=== PATIENT | male | born 1935 | race Caucasian/White ===

== ENCOUNTER 2016-08-10 16:33 | Inpatient (IN) | payer MEDICARE, BC ==
[2016-08-10] MEDS ORDERED: Ondansetron 4 MG/2 ML SDV IVPUSH ONE (17:25)
[2016-08-10] MEDS: Sodium Chloride 0.9% 1,000 ML IV SCH ×2 (17:39→23:44)
--- NOTE | 2016-08-10 18:07 | EDM.PDOC ---
[id number] Chief Complaint: Gastrointestinal Problem Stated Complaint: STOMACH PAIN/VOMITING Time Seen by Provider: 08/10/16 17:15 - Related Data Allergies Allergy/AdvReac Type Severity Reaction Status Date / Time No Known Allergies Allergy Verified 08/10/16 16:57 Home Meds: Home Meds Aspirin [Adult Low Dose Aspirin EC] 81 mg PO DAILY 09/26/13 [History] Metoprolol Tartrate [Lopressor] 25 mg PO DAILY 09/26/13 [History] Cyanocobalamin (Vitamin B-12) [Vitamin B12] 5,000 mcg PO DAILY 08/10/16 [History ] Carbidopa/Levodopa [Carbidopa-Levodopa 25-100] 1 tab PO TID 08/11/16 [History] Course - Vital Signs Last Recorded V/S: Last Vital Signs Temp 98.3 F 08/11/16 10:51 Pulse 59 L 08/11/16 10:51 Resp 16 08/11/16 10:51 BP 94/43 L 08/11/16 10:51 Pulse Ox 94 L 08/11/16 10:51 - Orders/Labs/Meds Orders: Active Orders 24 hr Category Date Time Status Abdomen Pelvis w Cont [CT] Stat Exams 08/10/16 18:23 Taken Medication Orders Albuterol (Proventil Neb Soln) 2.5 mg NEB Q4H PRN PRN Reason: Shortness Of Breath/wheezing Carbidopa/Levodopa (Sinemet 25-100 Mg) 1 tab PO TID [facility] Last Admin: 08/11/16 09:53 Dose: 1 tab Sodium Chloride (Normal Saline) 1,000 mls @ 125 mls/hr IV ASDIRECTED [facility] Lorazepam (Ativan) 0.5 mg IVPUSH Q2H PRN PRN Reason: Hiccups Metoprolol Tartrate (Lopressor) 25 mg PO DAILY [facility] Last Admin: 08/11/16 09:53 Dose: 25 mg Morphine Sulfate (Morphine) 2 mg IVPUSH Q2H PRN PRN Reason: Pain (severe 7-10) Ondansetron HCl (Zofran) 4 mg IV Q4H PRN PRN Reason: Nausea/Vomiting Pantoprazole Sodium (Protonix Iv) 40 mg IV Q12H [facility] Last Admin: 08/10/16 23:18 Dose: 40 mg Labs: Laboratory Tests 08/10/16 08/10/16 Range/Units 17:26 17:26 WBC 11.6 H (4.5-11.0) K/uL RBC 5.07 (4.30-5.90) M/uL Hgb 15.3 H (12.0-15.0) g/dL Hct 44.8 (40.0-54.0) % MCV 88 (80-98) fL MCH 30 (27-31) pg MCHC 34 (32-36) % Plt Count 147 L (150-400) K/uL Neut % (Auto) 91 H (36-66) % Lymph % (Auto) 3 L (24-44) % [place] % (Auto) 6 (2-6) % Eos % (Auto) 0 L (2-4) % Baso % (Auto) 0 (0-1) % Sodium 137 L (140-148) mmol/L Potassium 4.6 (3.6-5.2) mmol/L Chloride 102 (100-108) mmol/L Carbon Dioxide 25 (21-32) mmol/L Anion Gap 14.6 H (5.0-14.0) mmol/L BUN 25 H (7-18) mg/dL Creatinine 1.4 H (0.8-1.3) mg/dL Est Cr Clr Drug Dosing 40.71 mL/min Estimated GFR (MDRD) 49 L (>60) Glucose 152 H (74-106) mg/dL Calcium 8.7 (8.5-10.1) mg/dL Total Bilirubin 1.3 H (0.2-1.0) mg/dL AST 14 L (15-37) U/L ALT 15 (12-78) U/L Alkaline Phosphatase 66 (46-116) U/L Total Protein 8.0 (6.4-8.2) g/dL Albumin 3.8 (3.4-5.0) g/dL Globulin 4.2 H (2.3-3.5) g/dL Albumin/Globulin Ratio 0.9 L (1.2-2.2) Amylase 77 (25-115) U/L Lipase 100 (73-393) U/L Meds: Medications Generic Name Dose Route Start Last Admin Trade Name Freq PRN Reason Stop Dose Admin Albuterol 2.5 mg 08/10/16 22:20 Proventil Neb Soln NEB Q4H PRN Shortness Of Breath/wheezing Carbidopa/Levodopa 1 tab 08/11/16 09:00 08/11/16 09:53 Sinemet 25-100 Mg PO 1 tab TID JORDEN Administration Sodium Chloride 1,000 mls @ 125 mls/hr 08/10/16 22:20 Normal Saline IV ASDIRECTED JORDEN Lorazepam 0.5 mg 08/11/16 01:22 Ativan IVPUSH Q2H PRN Hiccups Metoprolol Tartrate 25 mg 08/11/16 09:00 08/11/16 09:53 Lopressor PO 25 mg DAILY JORDEN Administration Morphine Sulfate 2 mg 08/10/16 22:20 Morphine IVPUSH Q2H PRN Pain (severe 7-10) Ondansetron HCl 4 mg 08/10/16 22:20 Zofran IV Q4H PRN Nausea/Vomiting Pantoprazole Sodium 40 mg 08/10/16 22:20 08/10/16 23:18 Protonix Iv IV 40 mg Q12H JORDEN Administration Discontinued Medications Generic Name Dose Route Start Last Admin Trade Name Freq PRN Reason Stop Dose Admin Sodium Chloride 1,000 mls @ 150 mls/hr 08/10/16 17:30 08/11/16 06:54 Normal Saline IV 150 mls/hr ASDIRECTED JORDEN Administration Sodium Chloride 81 mls @ 3 mls/sec 08/10/16 18:29 08/10/16 18:56 Normal Saline IV 08/10/16 18:30 3 mls/sec ONETIME ONE Administration Iopamidol 135 ml 08/10/16 18:30 08/10/16 18:56 Isovue-300 (61%) IV 150 ml . DIRECTED JORDEN Administration Lorazepam 1 mg 08/10/16 22:20 Ativan IV Q6H PRN Nausea/Vomiting Ondansetron HCl 4 mg 08/10/16 17:25 08/10/16 17:40 Zofran IVPUSH 08/10/16 17:26 4 mg ONETIME ONE Administration Sodium Chloride 10 ml 08/10/16 18:29 08/10/16 18:56 Saline Flush FLUSH 10 ml ONETIME PRN Administration PER RADIOLOGY PROTOCOL Departure - Departure Time of Disposition: 20:36 Disposition: Admitted As Inpatient 66 Condition: fair Clinical Impression: Bowel obstruction Qualifiers: Intestinal obstruction type: other intestinal obstruction Qualified Code(s): K56.69 - Other intestinal obstruction - Discharge Information - My Orders Last 24 Hours: My Active Orders 08/10/16 18:23 Abdomen Pelvis w Cont [CT] Stat - Assessment/Plan Last 24 Hours: My Active Orders 08/10/16 18:23 Abdomen Pelvis w Cont [CT] Stat <Cooper Keller D - Last Filed: 08/11/16 11:23> ED HPI GENERAL MEDICAL PROBLEM - General Source of Information: Reports: Patient History Limitations: Reports: No Limitations - History of Present Illness INITIAL COMMENTS - FREE TEXT/NARRATIVE: 80-year-old male with Parkinson's has been vomiting since 3 AM. He was fine when he went to bed. He went into the clinic and they sent him to the emergency room because of persistent vomiting. He feels his abdomen is distended. No fevers or chills, no shortness of breath, no chest pain. He had a large bowel movement yesterday none since last evening. Onset: Sudden (Sometime in the middle of the night around 12 hours ago) Location: Reports: Abdomen Severity: Moderate Associated Symptoms: Reports: Loss of Appetite, Nausea/Vomiting, Weakness. Denies: Fever/Chills, Shortness of Breath Abdominal Pain Score (Numeric/FACES): 2 Past Medical History Cardiovascular History: Reports: Hypertension Gastrointestinal History: Reports: Cholelithiasis Neurological History: Reports: Parkinson's Oncologic (Cancer) History: Reports: Other (See Below) Other Oncologic History: skin cancer Dermatologic History: Reports: Other (See Below) Other Dermatologic History: skin cancer - Past Surgical History HEENT Surgical History: Reports: Tonsillectomy GI Surgical History: Reports: Cholecystectomy, Other (See Below) Other GI Surgeries/Procedures: AAA Dermatological Surgical History: Reports: Skin Biopsy Social & Family History - Tobacco Use Smoking Status *Q: Never Smoker Second Hand Smoke Exposure: No - Caffeine Use Caffeine Use Comment: rebecca - Alcohol Use Days Per Week of Alcohol Use: 0 - Recreational Drug Use Recreational Drug Use: No ED ROS GENERAL - Review of Systems Review Of Systems: See Below Constitutional: Reports: Malaise, Decreased Appetite. Denies: Fever, Chills HEENT: Reports: No Symptoms Respiratory: Denies: Shortness of Breath, Cough Cardiovascular: Denies: Chest Pain GI/Abdominal: Reports: Abdominal Pain, Decreased Appetite, Vomiting. Denies: Flatus : Reports: No Symptoms Skin: Reports: No Symptoms Neurological: Reports: Other (Parkinson symptoms, unchanged) Psychiatric: Reports: No Symptoms ED EXAM, GI/ABD - Physical Exam Exam: See Below Exam Limited By: No Limitations General Appearance: Alert, No Apparent Distress Throat/Mouth: Normal Inspection (Good hydration) Respiratory/Chest: No Respiratory Distress, Lungs Clear Cardiovascular: Irregularly Irregular GI/Abdominal: Soft, Hypoactive Bowel Sounds, Tympanic Bowel Sounds, Tenderness ( Diffusely), Distention Neurological: Alert, Oriented, Slow to Respond (Typical of Parkinson's) Psychiatric: Flat Affect Skin Exam: Warm, Dry Course - Re-Assessments/Exams Free Text/Narrative Re-Assessment/Exam: 08/10/16 18:17 White count was mildly elevated at 11.6, patient is not anemic. Hydration at 500 mL an hour of normal saline was started. Amylase and lipase were normal. GFR was for the 6, creatinine 1.4. A CT the abdomen and pelvis was obtained with IV contrast to assess for possible bowel obstruction. Care was turned over to Dr Marti pending CT scan results.
[2016-08-10] MEDS ORDERED: Sodium Chloride 0.9% 10 ML Syringe FLUSH PRN (18:29)
[2016-08-10] MEDS ORDERED: Iopamidol 612 MG/ML 150 ML Bottle IV SCH (18:30)
[2016-08-10] MEDS ORDERED: LORazepam 2 MG/ML MDV IV PRN (22:20)
[2016-08-10] MEDS ORDERED: Morphine 2 MG/ML Syringe IVPUSH PRN (22:20)
[2016-08-10] MEDS ORDERED: Albuterol 0.083% 2.5 MG/3 ML Neb Soln NEB PRN (22:20)
[2016-08-10] MEDS ORDERED: Ondansetron 4 MG/2 ML SDV IV PRN (22:20)
--- NOTE | 2016-08-10 22:55 | PCM.HP ---
H&P History of Present Illness - General Date of Service: 08/10/16 Admit Problem/Dx: Admission Diagnosis/Problem Admission Diagnosis/Problem Small bowel obstruction Source of Information: Patient, Family ( and son) History Limitations: Reports: No Limitations - History of Present Illness Initial Comments - Free Text/Narative: History Limitations: Reports: No Limitations - History of Present Illness INITIAL COMMENTS - FREE TEXT/NARRATIVE: 80-year-old male with Parkinson's has been vomiting since 3 AM. He was fine when he went to bed. He went into the clinic and they sent him to the emergency room because of persistent vomiting. He feels his abdomen is distended. No fevers or chills, no shortness of breath, no chest pain. He had a large bowel movement yesterday none since last evening. Onset: Sudden (Sometime in the middle of the night around 12 hours ago) Location: Reports: Abdomen Severity: Moderate Associated Symptoms: Reports: Loss of Appetite, Nausea/Vomiting, Weakness. Denies: Fever/Chills, Shortness of Breath Abdominal 08/10/16 18:17 White count was mildly elevated at 11.6, patient is not anemic. Hydration at 500 mL an hour of normal saline was started. Amylase and lipase were normal. GFR was for the 6, creatinine 1.4. A CT the abdomen and pelvis was obtained with IV contrast to assess for possible bowel obstruction. CT scan; new small bowel obstruction. focal small bowel transition point not identified. no pneumatosis, free air or interloop ascities. terminal ileum is decompressed. large bowel is normal caliber with extensive diverticulosis. see full report. Onset of Symptoms: Reports: Today Symptom Onset Date: 08/10/16 Symptom Onset Time: 03:00 Duration of Symptoms: Reports: Hour(s):, Getting Worse Location: Reports: Abdomen Quality: Reports: Ache, Sharp Severity: Moderate Improves with: Reports: None Worsens with: Reports: Eating, Movement Context: Reports: Other (last meal Monday night, ate roast pork supper, sick every since.) Associated Symptoms: Reports: Loss of Appetite, Nausea/Vomiting Abdominal Pain Score (Numeric/FACES): 2 - Related Data Allergies/Adverse Reactions: Allergies Allergy/AdvReac Type Severity Reaction Status Date / Time No Known Allergies Allergy Verified 08/10/16 16:57 Home Medications: Home Meds Aspirin [Adult Low Dose Aspirin EC] 81 mg PO DAILY 09/26/13 [History] Carbidopa/Levodopa [Sinemet Cr 25-100 Tablet] 1 tab PO TID 09/26/13 [History] Metoprolol Tartrate [Lopressor] 25 mg PO DAILY 09/26/13 [History] Cyanocobalamin (Vitamin B-12) [Vitamin B12] 5,000 mcg PO DAILY 08/10/16 [History ] Past Medical History Cardiovascular History: Reports: Hypertension Gastrointestinal History: Reports: Cholelithiasis Other Gastrointestinal History: hernia surgery X1, 2 hernias Neurological History: Reports: Parkinson's Oncologic (Cancer) History: Reports: Other (See Below) Other Oncologic History: skin cancer Dermatologic History: Reports: Other (See Below) Other Dermatologic History: skin cancer - Past Surgical History HEENT Surgical History: Reports: Tonsillectomy GI Surgical History: Reports: Cholecystectomy, Other (See Below) Other GI Surgeries/Procedures: AAA Dermatological Surgical History: Reports: Skin Biopsy Social & Family History - Family History Family Medical History: Noncontributory - Tobacco Use Smoking Status *Q: Never Smoker Second Hand Smoke Exposure: No - Caffeine Use Caffeine Use Comment: rarley - Alcohol Use Days Per Week of Alcohol Use: 0 - Recreational Drug Use Recreational Drug Use: No - Living Situation & Occupation Living situation: Reports: Occupation: Retired (lives with [employer] [address], one son and daughter. Son Template Fitter [place] H&P Review of Systems - Review of Systems: Review Of Systems: See Below General: Reports: Chills, Malaise, Fatigue, Decreased Appetite HEENT: Reports: No Symptoms Pulmonary: Reports: No Symptoms Cardiovascular: Reports: No Symptoms Gastrointestinal: Reports: Abdominal Pain, Distension, Nausea, Vomiting Genitourinary: Reports: No Symptoms Musculoskeletal: Reports: No Symptoms Skin: Reports: No Symptoms Psychiatric: Reports: No Symptoms Neurological: Reports: No Symptoms Hematologic/Lymphatic: Reports: No Symptoms Immunologic: Reports: No Symptoms Exam - Exam Exam: See Below - Vital Signs Vital Signs: Last Vital Signs Temp 37.8 C 08/10/16 21:46 Pulse 92 08/10/16 21:46 Resp 16 08/10/16 19:48 BP 153/80 H 08/10/16 21:46 Pulse Ox 92 L 08/10/16 21:46 Weight: 89.811 kg - Exam General: Alert, Oriented, Cooperative, Mild Distress HEENT: PERRLA, Conjunctiva Clear, EACs Clear, EOMI, Hearing Intact, Mucosa Moist & [place], Nares Patent, Normal Nasal Septum, Posterior Pharynx Clear, Pupils Equal, Pupils Reactive, Other (natural teeth present) Neck: Supple, Trachea Midline Lungs: Clear to Auscultation, Normal Respiratory Effort Cardiovascular: Regular Rate, Regular Rhythm Abdomen: Distention, Tenderness, Hypoactive Bowel Sounds (low abdomen) (Male) Exam: Deferred Rectal (Males) Exam: Deferred Back Exam: Normal Inspection, Full Range of Motion Extremities: Normal Inspection Skin: Warm, Dry, Intact Neurological: Strength Equal Bilateral, Normal Speech, Other (parkinson disease ; tremor and ridigity noted.) Neuro Extensive - Mental Status: Alert, Oriented x3, Normal Mood/Affect, Normal Cognition Neuro Extensive - Motor, Sensory, Reflexes: Motor/Sensory Deficits Psychiatric: Alert, Normal Affect, Normal Mood - Patient Data Result Diagrams: 08/10/16 17:26 08/10/16 17:26 *Q Meaningful Use (ADM) - VTE *Q VTE Criteria *Q: - Stroke *Q Stroke Criteria *Q: - AMI *Q AMI Criteria *Q: - Problem List (1) Bowel obstruction SNOMED Code(s): 84537164 ICD Code: K56.60 - UNSPECIFIED INTESTINAL OBSTRUCTION Status: Acute Priority: High Current Visit: Yes Qualifiers: Intestinal obstruction type: other intestinal obstruction Qualified Code(s) : K56.69 - Other intestinal obstruction (2) Abdominal pain SNOMED Code(s): 75492829 ICD Code: R10.9 - UNSPECIFIED ABDOMINAL PAIN Status: Acute Priority: High Current Visit: Yes Onset Date: 09/26/13 (3) Parkinson's disease SNOMED Code(s): 77632837 ICD Code: G20 - PARKINSON'S DISEASE Status: Chronic Priority: High Current Visit: Yes Problem List Initiated/Reviewed/Updated: Yes Orders Last 24hrs: Active Orders 24 hr Category Date Time Status Patient Status [ADT] Routine ADT 08/10/16 22:20 Active Bedrest Bathroom Privileges [RC] ASDIRECTED Care 08/10/16 22:20 Active Intake and Output [RC] QSHIFT Care 08/10/16 22:20 Active Oxygen Therapy [RC] PRN Care 08/10/16 22:20 Active RT Aerosol Therapy [RC] ASDIRECTED Care 08/10/16 22:20 Active Up With Assistance [RC] ASDIRECTED Care 08/10/16 22:20 Active VTE/DVT Education [RC] Per Unit Routine Care 08/10/16 22:20 Active Vital Signs [RC] Q4H Care 08/10/16 22:20 Active OT Evaluation and Treatment [CONS] Routine Cons 08/10/16 22:20 Active Nothing per Oral Now Diet [DIET] Diet 08/10/16 Breakfast Active Abdomen 1V Flat [CR] Routine Exams 08/10/16 22:08 Taken AMYLASE [CHEM] AM Lab 08/11/16 05:11 Ordered BASIC METABOLIC PANEL,BMP [CHEM] AM Lab 08/11/16 05:11 Ordered CBC WITH AUTO DIFF [HEME] AM Lab 08/11/16 05:11 Ordered LACTIC ACID [CHEM] AM Lab 08/11/16 05:11 Ordered LIPASE [CHEM] AM Lab 08/11/16 05:11 Ordered OCCULT BLOOD SCREEN [OP] Lab 08/10/16 22:20 Uncollected Albuterol [Proventil Neb Soln] Med 08/10/16 22:20 Active 2.5 mg NEB Q4H PRN Carbidopa/Levodopa [Sinemet Cr 25-100 Tablet] Med 08/11/16 09:00 Active 1 tab PO TID LORazepam [Ativan] Med 08/10/16 22:20 Active 1 mg IV Q6H PRN Metoprolol Tartrate [Lopressor] Med 08/11/16 09:00 Active 25 mg PO DAILY Morphine Med 08/10/16 22:20 Active 2 mg IVPUSH Q2H PRN Ondansetron [Zofran] Med 08/10/16 22:20 Active 4 mg IV Q4H PRN Pantoprazole [ProTONIX IV] Med 08/10/16 22:20 Active 40 mg IV Q12H Sodium Chloride 0.9% [Normal Saline] 1,000 ml Med 08/10/16 22:20 Active IV ASDIRECTED CAUTI Risk Assessment [OM.PC] Routine Oth 08/10/16 22:20 Ordered Nasogastric Orogastric Tube Insertion [OM.PC] Urgent Oth 08/10/16 22:20 Ordered Sequential Compression Device [OM.PC] Per Unit Routine Oth 08/10/16 22:20 Ordered Resuscitation Status Stat Resus Stat 08/10/16 21:24 Ordered Medication Orders Albuterol (Proventil Neb Soln) 2.5 mg NEB Q4H PRN PRN Reason: Shortness Of Breath/wheezing Sodium Chloride (Normal Saline) 1,000 mls @ 150 mls/hr IV ASDIRECTED [facility] Last Admin: 08/10/16 17:39 Dose: 150 mls/hr Sodium Chloride (Normal Saline) 1,000 mls @ 125 mls/hr IV ASDIRECTED [facility] Iopamidol (Isovue-300 (61%)) 135 ml IV . DIRECTED [facility] Last Admin: 08/10/16 18:56 Dose: 150 ml Lorazepam (Ativan) 1 mg IV Q6H PRN PRN Reason: Nausea/Vomiting Metoprolol Tartrate (Lopressor) 25 mg PO DAILY [facility] Morphine Sulfate (Morphine) 2 mg IVPUSH Q2H PRN PRN Reason: Pain (severe 7-10) Non-Formulary Medication (Carbidopa/Levodopa [Sinemet Cr 25-100 Tablet]) 1 tab PO TID [facility] Ondansetron HCl (Zofran) 4 mg IV Q4H PRN PRN Reason: Nausea/Vomiting Pantoprazole Sodium (Protonix Iv) 40 mg IV Q12H [facility] Sodium Chloride (Saline Flush) 10 ml FLUSH ONETIME PRN PRN Reason: PER RADIOLOGY PROTOCOL Last Admin: 08/10/16 18:56 Dose: 10 ml Assessment/Plan Comment:: ASSESSMENT / PLAN 80-year-old male with Parkinson's has been vomiting since 3 AM. He was fine when he went to bed. He went into the clinic and they sent him to the emergency room because of persistent vomiting. He feels his abdomen is distended. No fevers or chills, no shortness of breath, no chest pain. He had a large bowel movement yesterday none since last evening. Onset: Sudden (Sometime in the middle of the night around 12 hours ago) Location: Reports: Abdomen Severity: Moderate Associated Symptoms: Reports: Loss of Appetite, Nausea/Vomiting, Weakness. Denies: Fever/Chills, Shortness of Breath Abdominal 08/10/16 18:17 White count was mildly elevated at 11.6, patient is not anemic. Hydration at 500 mL an hour of normal saline was started. Amylase and lipase were normal. GFR was for the 6, creatinine 1.4. A CT the abdomen and pelvis was obtained with IV contrast to assess for possible bowel obstruction. CT scan; new small bowel obstruction. focal small bowel transition point not identified. no pneumatosis, free air or interloop ascities. terminal ileum is decompressed. large bowel is normal caliber with extensive diverticulosis. see full report. Plan Small Bowel Obstruction -Admit to [address] [place] [address] for further monitoring -IV fluids for rehydration NS at 125 mL per hour -Advise to notify nurses of any chest pain or other symptoms -NG tube to low intermittent suction -And a.m. labs: CBC, BMP, Parkinson -continue medication Maintenance issues -Orders home meds: hold or changed to IV -Nutrition: NPO -Crenshaw catheter not indicated at this time -DVT: scd -PPI; Protonix 40mg IV -referral to OT CODE STATUS: Full Admission status: Admit to [address] [place] [address] Admission justification. This patient will be admitted for inpatient services and is medically appropriate meeting medical necessity for inpatient admission as outlined in my documentation. I reasonably expect the patient will require inpatient services that span. Time over 2 midnights. I reasonably expect this patient to be discharged or transferred within 96 hours after admission to the critical access hospital. Disposition; home with family Primary care provider: Dr. Mei
[2016-08-10] MEDS: Pantoprazole 40 MG Vial IV SCH (23:18)
[2016-08-11] MEDS ORDERED: LORazepam 2 MG/ML MDV IVPUSH PRN (01:22)
[2016-08-11] MEDS: Sodium Chloride 0.9% 1,000 ML IV SCH ×3 (06:54→22:49)
--- NOTE | 2016-08-11 07:15 | PCM.SN ---
- Free Text/Narrative Note: time: 01:24 am call from [address] [place] [address], Mr. Bell is having hiccups, otherwise no other concerns, has tried to adjust NG tube a; NG Tube, hiccups p; given IV Ativan 0.5mg every 2 hours prn symptoms. continue with present plan of care.
[2016-08-11] MEDS ORDERED: LEVODOPA PO SCH (09:00)
[2016-08-11] MEDS ORDERED: CARBIDOPA PO SCH (09:00)
[2016-08-11] MEDS: Metoprolol Tartrate 25 MG Tab PO SCH (09:53)
[2016-08-11] MEDS: Carbidopa/Levodopa 25-100 MG Tab PO SCH ×3 (09:53→20:49)
[2016-08-11] MEDS: Pantoprazole 40 MG Vial IV SCH ×2 (09:55→22:01)
--- NOTE | 2016-08-11 10:27 | CR ---
Abdomen 1V Flat HISTORY: NG tube placement. Findings: NG tube appears to be at the GE junction and should be advanced 5 to 7 cm from more optimal position ing.
--- NOTE | 2016-08-11 19:56 | PCM.PN ---
- General Info Date of Service: 08/11/16 Functional Status: Reports: pain controlled, ambulating - Review of Systems General: Denies: Fever, Weakness, Chills Pulmonary: Reports: no symptoms Cardiovascular: Reports: No Symptoms Gastrointestinal: Reports: Flatus. Denies: Abdominal pain, Nausea, Vomiting Neurological: Reports: Tremors Systems Review Comment:: Mr. Bell is an 80-year-old gentleman who was admitted last night with nausea and vomiting as well as abdominal pain secondary to a mechanical small bowel obstruction. He denies previous history of bowel obstruction but has had previous surgeries including hernia repairs and a cholecystectomy. He developed symptoms about 2 days prior to admission that progressively became worse. Pain was described as a cramping sensation in his mid abdomen that would seem to come and go but did not radiate. Prior to admission the pain had become significantly more severe and was associated with nausea and vomiting. On evaluation in the emergency Department laboratory studies were unremarkable, CT scan showed evidence of small bowel obstruction. NG tube has been placed to low intermittent suction and he is felt significantly improved. This morning has passed some gas and also had a small bowel movement. NG output has been relatively low. - Patient Data Vitals - most recent: Last Vital Signs Temp 98.3 F 08/11/16 19:00 Pulse 66 08/11/16 19:00 Resp 16 08/11/16 19:00 BP 165/90 H 08/11/16 19:00 Pulse Ox 94 L 08/11/16 19:00 Weight - most recent: 198 lb I&O - last 24 hours: Intake & Output 08/11/16 08/11/16 08/11/16 06:59 14:59 22:59 Intake Total 945 1813 Output Total 450 800 600 Balance 495 -800 1213 Lab Results last 24 hrs: Laboratory Results - last 24 hr 08/11/16 08/11/16 08/11/16 Range/Units 05:00 05:00 05:00 WBC 10.2 (4.5-11.0) K/uL RBC 4.47 (4.30-5.90) M/uL Hgb 13.6 (12.0-15.0) g/dL Hct 40.3 (40.0-54.0) % MCV 90 (80-98) fL MCH 30 (27-31) pg MCHC 34 (32-36) % Plt Count 124 L (150-400) K/uL Neut % (Auto) 78 H (36-66) % Lymph % (Auto) 5 L (24-44) % [place] % (Auto) 15 H (2-6) % Eos % (Auto) 2 (2-4) % Baso % (Auto) 0 (0-1) % Sodium 141 (140-148) mmol/L Potassium 4.3 (3.6-5.2) mmol/L Chloride 107 (100-108) mmol/L Carbon Dioxide 25 (21-32) mmol/L Anion Gap 9.5 (5.0-14.0) mmol/L BUN 22 H (7-18) mg/dL Creatinine 1.2 (0.8-1.3) mg/dL Est Cr Clr Drug Dosing 47.50 mL/min Estimated GFR (MDRD) 58 L (>60) Glucose 108 H (74-106) mg/dL Lactic Acid 0.9 (0.4-2.0) mmol/L Calcium 8.1 L (8.5-10.1) mg/dL Amylase 55 (25-115) U/L Lipase 70 L (73-393) U/L Med Orders - Current: Current Medications Albuterol (Proventil Neb Soln) 2.5 mg NEB Q4H PRN PRN Reason: Shortness Of Breath/wheezing Carbidopa/Levodopa (Sinemet 25-100 Mg) 1 tab PO TID [facility] Last Admin: 08/11/16 13:34 Dose: 1 tab Sodium Chloride (Normal Saline) 1,000 mls @ 125 mls/hr IV ASDIRECTED [facility] Last Admin: 08/11/16 14:47 Dose: 125 mls/hr Lorazepam (Ativan) 0.5 mg IVPUSH Q2H PRN PRN Reason: Hiccups Metoprolol Tartrate (Lopressor) 25 mg PO DAILY [facility] Last Admin: 08/11/16 09:53 Dose: 25 mg Morphine Sulfate (Morphine) 2 mg IVPUSH Q2H PRN PRN Reason: Pain (severe 7-10) Ondansetron HCl (Zofran) 4 mg IV Q4H PRN PRN Reason: Nausea/Vomiting Pantoprazole Sodium (Protonix Iv) 40 mg IV Q12H [facility] Last Admin: 08/11/16 09:55 Dose: 40 mg Discontinued Medications Sodium Chloride (Normal Saline) 1,000 mls @ 150 mls/hr IV ASDIRECTED [facility] Last Admin: 08/11/16 06:54 Dose: 150 mls/hr Sodium Chloride (Normal Saline) 81 mls @ 3 mls/sec IV ONETIME ONE Stop: 08/10/16 18:30 Last Admin: 08/10/16 18:56 Dose: 3 mls/sec Iopamidol (Isovue-300 (61%)) 135 ml IV . DIRECTED [facility] Last Admin: 08/10/16 18:56 Dose: 150 ml Lorazepam (Ativan) 1 mg IV Q6H PRN PRN Reason: Nausea/Vomiting Ondansetron HCl (Zofran) 4 mg IVPUSH ONETIME ONE Stop: 08/10/16 17:26 Last Admin: 08/10/16 17:40 Dose: 4 mg Sodium Chloride (Saline Flush) 10 ml FLUSH ONETIME PRN PRN Reason: PER RADIOLOGY PROTOCOL Last Admin: 08/10/16 18:56 Dose: 10 ml - Exam Quality Assessment: DVT prophylaxis General: alert, oriented, cooperative, no acute distress Lungs: Clear to auscultation, Normal respiratory effort Cardiovascular: Regular Rate, Regular Rhythm, No Murmurs Abdomen: bowel sounds present, soft, no tenderness, no distension Neurological: other (Tremor, rigidity, consistent with Parkinson's disease) - Problem List Review Problem List Initiated/Reviewed/Updated: Yes - My Orders Last 24 Hours: My Active Orders 08/11/16 14:58 Consult to Physician [CONS] Urgent 08/11/16 14:59 Notify Provider Consults [RC] ASDIRECTED 08/12/16 05:00 BASIC METABOLIC PANEL,BMP [CHEM] Timed - Plan Plan:: ASSESSMENT / PLAN SMALL BOWEL OBSTRUCTION-symptoms began 2 days prior to admission. He feels much better with NG tube in place, no further nausea vomiting or cramping abdominal pain. He has passed some gas this morning and had a small bowel movement, NG output has been early low. -Continue IV fluids for rehydration NS at 125 mL per hour -NG tube to low intermittent suction -Surgical followup per Dr. Quach -Repeat abdominal flat plate and upright x-ray in a.m. PARKINSON'S DISEASE -Continue outpatient medications HYPERTENSION -Continue outpatient medications Maintenance issues -Orders home meds: hold or changed to IV -Nutrition: NPO -Crenshaw catheter not indicated at this time -DVT: scd -PPI; Protonix 40mg IV -referral to OT CODE STATUS: Full Admission status: Admit to [address] [place] [address] Admission justification. This patient will be admitted for inpatient services and is medically appropriate meeting medical necessity for inpatient admission as outlined in my documentation. I reasonably expect the patient will require inpatient services that span. Time over 2 midnights. I reasonably expect this patient to be discharged or transferred within 96 hours after admission to the [facility]. Disposition; home with family Primary care provider: Dr. Mei
[2016-08-12] MEDS: Sodium Chloride 0.9% 1,000 ML IV SCH ×2 (06:57→16:13)
[2016-08-12] MEDS: Carbidopa/Levodopa 25-100 MG Tab PO SCH ×3 (09:01→21:05)
[2016-08-12] MEDS: Metoprolol Tartrate 25 MG Tab PO SCH (09:01)
--- NOTE | 2016-08-12 10:16 | CR ---
Abdomen 2V AP Flat Upright HISTORY: Follow-up obstruction. COMPARISON: Plain film 08/10/2016. FINDINGS: NG tube remains above the GE junction. There remains some mildly dilated loops of small liliane wel centrally measuring up to 4.4 cm compatible with mid to distal small bowel obstructive process. No free air seen. Impression: NG tube should be advanced below the left hemidiaphragm within the stomach for more optimal position ing. Persistence of dilated loops of small bowel similar to prior study.
[2016-08-12] MEDS: Pantoprazole 40 MG Vial IV SCH ×2 (10:17→21:54)
--- NOTE | 2016-08-12 12:44 | PCM.PN ---
- General Info Date of Service: 08/12/16 Functional Status: Reports: pain controlled, ambulating - Review of Systems Gastrointestinal: Denies: Abdominal pain, Nausea Systems Review Comment:: No acute events overnight. Abdominal pain has essentially resolved. No complaints of nausea. NG tube was noted to be in the esophagus and was advanced this morning. No NG tube drainage since last night even after the tube was advanced. No fevers. He is passing gas. Mild heartburn reported. - Patient Data Vitals - most recent: Last Vital Signs Temp 36.4 C 08/12/16 11:00 Pulse 83 08/12/16 11:00 Resp 18 08/12/16 11:00 BP 133/74 08/12/16 11:00 Pulse Ox 97 08/12/16 11:00 Weight - most recent: 89.811 kg I&O - last 24 hours: Intake & Output 08/11/16 08/12/16 08/12/16 22:59 06:59 14:59 Intake Total 1813 1413 Output Total 940 790 300 Balance 873 623 -300 Lab Results last 24 hrs: Laboratory Results - last 24 hr 08/12/16 Range/Units 05:43 Sodium 141 (140-148) mmol/L Potassium 4.1 (3.6-5.2) mmol/L Chloride 109 H (100-108) mmol/L Carbon Dioxide 25 (21-32) mmol/L Anion Gap 11.1 (5.0-14.0) mmol/L BUN 16 (7-18) mg/dL Creatinine 1.2 (0.8-1.3) mg/dL Est Cr Clr Drug Dosing 47.50 mL/min Estimated GFR (MDRD) 58 L (>60) Glucose 87 (74-106) mg/dL Calcium 8.0 L (8.5-10.1) mg/dL Med Orders - Current: Current Medications Albuterol (Proventil Neb Soln) 2.5 mg NEB Q4H PRN PRN Reason: Shortness Of Breath/wheezing Carbidopa/Levodopa (Sinemet 25-100 Mg) 1 tab PO TID [facility] Last Admin: 08/12/16 09:01 Dose: 1 tab Erythromycin Ethylsuccinate (Eryped 400) 125 mg PO BID [facility] Lorazepam (Ativan) 0.5 mg IVPUSH Q2H PRN PRN Reason: Hiccups Metoprolol Tartrate (Lopressor) 25 mg PO DAILY [facility] Last Admin: 08/12/16 09:01 Dose: 25 mg Morphine Sulfate (Morphine) 2 mg IVPUSH Q2H PRN PRN Reason: Pain (severe 7-10) Ondansetron HCl (Zofran) 4 mg IV Q4H PRN PRN Reason: Nausea/Vomiting Pantoprazole Sodium (Protonix Iv) 40 mg IV Q12H REPLACED BY [facility] Last Admin: 08/12/16 10:17 Dose: 40 mg Senna/Docusate Sodium (Senna Plus) 1 tab PO BID REPLACED BY [facility] Discontinued Medications Sodium Chloride (Normal Saline) 1,000 mls @ 150 mls/hr IV ASDIRECTED REPLACED BY [facility] Last Admin: 08/11/16 06:54 Dose: 150 mls/hr Sodium Chloride (Normal Saline) 81 mls @ 3 mls/sec IV ONETIME ONE Stop: 08/10/16 18:30 Last Admin: 08/10/16 18:56 Dose: 3 mls/sec Sodium Chloride (Normal Saline) 1,000 mls @ 125 mls/hr IV ASDIRECTED REPLACED BY [facility] Last Admin: 08/12/16 06:57 Dose: 125 mls/hr Iopamidol (Isovue-300 (61%)) 135 ml IV . DIRECTED REPLACED BY [facility] Last Admin: 08/10/16 18:56 Dose: 150 ml Lorazepam (Ativan) 1 mg IV Q6H PRN PRN Reason: Nausea/Vomiting Ondansetron HCl (Zofran) 4 mg IVPUSH ONETIME ONE Stop: 08/10/16 17:26 Last Admin: 08/10/16 17:40 Dose: 4 mg Sodium Chloride (Saline Flush) 10 ml FLUSH ONETIME PRN PRN Reason: PER RADIOLOGY PROTOCOL Last Admin: 08/10/16 18:56 Dose: 10 ml - Exam Quality Assessment: No: supplemental oxygen General: alert, oriented, cooperative, no acute distress HEENT: Other (NG tube in place) Neck: supple Lungs: Normal respiratory effort Abdomen: bowel sounds present, soft, no tenderness, no distension Extremities: no edema, no cyanosis Skin: warm, dry Psy/Mental Status: alert, normal affect - Problem List Review Problem List Initiated/Reviewed/Updated: Yes - My Orders Last 24 Hours: My Active Orders 08/12/16 12:42 Communication Order [RC] ROUTINE 08/12/16 12:43 Cardiac Monitoring Discontinue [RC] Click to Edit 08/12/16 13:00 Sodium Chloride 0.9% [Normal Saline] 1,000 ml IV ASDIRECTED - Plan Plan:: ASSESSMENT / PLAN MECHANICAL SMALL BOWEL OBSTRUCTION - abdominal pain has resolved. X-ray looks a little better this morning. He is passing some gas. -Continue IV fluids -Clamp the NG tube -Surgical followup per Dr. Quach -Repeat abdominal flat plate and upright x-ray in a.m. PARKINSON'S DISEASE -Continue outpatient medications HYPERTENSION -Continue outpatient medications Maintenance issues -Orders home meds: hold or changed to IV -Nutrition: NPO -Crenshaw catheter not indicated at this time -DVT: scd -PPI; Protonix 40mg IV -referral to OT Disposition; home with family Jacob Riley M.D.
[2016-08-12] MEDS: Erythromycin Ethylsuccinate Susp 400 MG/5 ML 100 ML Bottle PO SCH ×2 (13:10→21:04)
[2016-08-12] MEDS ORDERED: Sodium Phosphate,Monobasic/Sodium Phosphate,Dibasic Enema 133 ML Bottle RECTAL ONE (13:16)
[2016-08-12] MEDS ORDERED: Oxymetazoline 0.05% Nasal Spray 15 ML Bottle NAS PRN (16:22)
[2016-08-12] MEDS ORDERED: Aluminum Hydroxide/Magnesium Hydroxide/Simethicone Susp 30 ML Cup PO PRN (16:34)
[2016-08-13] MEDS: Sodium Chloride 0.9% 1,000 ML IV SCH (04:59)
[2016-08-13] MEDS: Metoprolol Tartrate 25 MG Tab PO SCH (08:59)
[2016-08-13] MEDS: Erythromycin Ethylsuccinate Susp 400 MG/5 ML 100 ML Bottle PO SCH ×2 (08:59→20:40)
[2016-08-13] MEDS: Carbidopa/Levodopa 25-100 MG Tab PO SCH ×3 (09:00→20:41)
[2016-08-13] MEDS: Pantoprazole 40 MG Vial IV SCH (09:45)
[2016-08-13] MEDS ORDERED: Acetaminophen 325 MG Tab PO PRN (10:00)
--- NOTE | 2016-08-13 10:03 | PCM.PN ---
- General Info Date of Service: 08/13/16 Functional Status: Reports: pain controlled, tolerating diet, ambulating - Review of Systems Gastrointestinal: Denies: Abdominal pain, Nausea Systems Review Comment:: No acute events overnight. Abdominal pain has not returned. He has not had any nausea. NG tube was removed without incident yesterday afternoon. No fevers. Abdominal x-ray looks better. Tolerating liquids so far. - Patient Data Vitals - most recent: Last Vital Signs Temp 36.2 C 08/13/16 07:00 Pulse 88 08/13/16 08:59 Resp 20 08/13/16 07:00 BP 138/83 08/13/16 08:59 Pulse Ox 96 08/13/16 07:00 Weight - most recent: 89.811 kg I&O - last 24 hours: Intake & Output 08/12/16 08/13/16 08/13/16 22:59 06:59 14:59 Intake Total 1432 798 Output Total 380 325 500 Balance 1052 473 -500 Med Orders - Current: Current Medications Al Hydroxide/Mg Hydroxide (Mag-Al Plus) 30 ml PO Q4H PRN PRN Reason: Indigestion Albuterol (Proventil Neb Soln) 2.5 mg NEB Q4H PRN PRN Reason: Shortness Of Breath/wheezing Carbidopa/Levodopa (Sinemet 25-100 Mg) 1 tab PO TID [facility] Last Admin: 08/13/16 09:00 Dose: 1 tab Erythromycin Ethylsuccinate (Eryped 400) 125 mg PO BID [facility] Last Admin: 08/13/16 08:59 Dose: 125 mg Metoprolol Tartrate (Lopressor) 25 mg PO DAILY [facility] Last Admin: 08/13/16 08:59 Dose: 25 mg Morphine Sulfate (Morphine) 2 mg IVPUSH Q2H PRN PRN Reason: Pain (severe 7-10) Ondansetron HCl (Zofran) 4 mg IV Q4H PRN PRN Reason: Nausea/Vomiting Oxymetazoline HCl (Afrin Original 0.05% Nasal [place]) 0 ml AVRIL Q12H PRN PRN Reason: nasal congestion Last Admin: 08/12/16 16:47 Dose: 1 spray Senna/Docusate Sodium (Senna Plus) 1 tab PO BID [facility] Last Admin: 08/13/16 09:00 Dose: 1 tab Discontinued Medications Sodium Chloride (Normal Saline) 1,000 mls @ 150 mls/hr IV ASDIRECTED [facility] Last Admin: 08/11/16 06:54 Dose: 150 mls/hr Sodium Chloride (Normal Saline) 81 mls @ 3 mls/sec IV ONETIME ONE Stop: 08/10/16 18:30 Last Admin: 08/10/16 18:56 Dose: 3 mls/sec Sodium Chloride (Normal Saline) 1,000 mls @ 125 mls/hr IV ASDIRECTED [facility] Last Admin: 08/12/16 06:57 Dose: 125 mls/hr Sodium Chloride (Normal Saline) 1,000 mls @ 75 mls/hr IV ASDIRECTED [facility] Last Admin: 08/13/16 04:59 Dose: 75 mls/hr Iopamidol (Isovue-300 (61%)) 135 ml IV . DIRECTED [facility] Last Admin: 08/10/16 18:56 Dose: 150 ml Lorazepam (Ativan) 1 mg IV Q6H PRN PRN Reason: Nausea/Vomiting Lorazepam (Ativan) 0.5 mg IVPUSH Q2H PRN PRN Reason: Hiccups Ondansetron HCl (Zofran) 4 mg IVPUSH ONETIME ONE Stop: 08/10/16 17:26 Last Admin: 08/10/16 17:40 Dose: 4 mg Pantoprazole Sodium (Protonix Iv) 40 mg IV Q12H [facility] Last Admin: 08/13/16 09:45 Dose: 40 mg Sodium Biphosphate/Sodium Phosphate (Fleet Enema) 133 ml RECTAL ONETIME ONE Stop: 08/12/16 13:17 Last Admin: 08/12/16 13:20 Dose: 1 enema Sodium Chloride (Saline Flush) 10 ml FLUSH ONETIME PRN PRN Reason: PER RADIOLOGY PROTOCOL Last Admin: 08/10/16 18:56 Dose: 10 ml - Exam Quality Assessment: No: supplemental oxygen General: alert, oriented, cooperative, no acute distress Neck: supple Lungs: Normal respiratory effort Abdomen: soft, no tenderness, no distension Extremities: no edema, no cyanosis Skin: warm, dry Psy/Mental Status: alert, normal affect - Problem List Review Problem List Initiated/Reviewed/Updated: Yes - My Orders Last 24 Hours: My Active Orders 08/12/16 12:43 Cardiac Monitoring Discontinue [RC] Click to Edit 08/12/16 13:00 Sodium Chloride 0.9% [Normal Saline] 1,000 ml IV ASDIRECTED 08/12/16 16:22 Oxymetazoline [Afrin Original 0.05% Nasal [place]] 0 ml AVRIL Q12H PRN 08/12/16 16:33 NG [Nasogastric Orogastric Tube Removal] [OM.PC] Routine 08/12/16 16:34 Alum Hydrox/Mag Hydrox/Simeth [Mag-Al Plus] 30 ml PO Q4H PRN 08/13/16 10:00 Acetaminophen [Tylenol] 650 mg PO Q4H PRN Convert IV to Saline Lock [OM.PC] Routine 08/13/16 10:01 Discontinue Telemetry Monitoring [Cardiac Monitoring Discontinue] [RC] Click to Edit 08/13/16 10:02 Up ad [place] [RC] ASDIRECTED 08/13/16 16:30 Pantoprazole [ProTONIX] 40 mg PO BIDAC - Plan Plan:: ASSESSMENT / PLAN MECHANICAL SMALL BOWEL OBSTRUCTION - abdominal pain has resolved. X-ray continues to improve. Tolerating liquids so far. Surgical consultation appreciated. -Saline lock IV -Full liquid diet -Consider trial of a low residual diet tomorrow -Anticipate lifelong requirement for low residual diet PARKINSON'S DISEASE -Continue outpatient medications HYPERTENSION -Continue outpatient medications Maintenance issues -Nutrition: Full liquids -Crenshaw catheter not indicated at this time -DVT: scd -PPI; PPI Disposition; home with family tomorrow if stable Jacob Riley M.D.
[2016-08-13] MEDS ORDERED: Dextrose 5%-Lactated Ringers 1,000 ML IV SCH (10:30)
[2016-08-13] MEDS: Pantoprazole 40 MG Tab.CR PO SCH (17:50)
[2016-08-14] MEDS: Pantoprazole 40 MG Tab.CR PO SCH (07:07)
[2016-08-14 08:05] VITALS: BP 111/76
[2016-08-14] MEDS: Carbidopa/Levodopa 25-100 MG Tab PO SCH (08:35)
[2016-08-14] MEDS: Erythromycin Ethylsuccinate Susp 400 MG/5 ML 100 ML Bottle PO SCH (08:35)
[2016-08-14] MEDS: Metoprolol Tartrate 25 MG Tab PO SCH (08:35)
--- NOTE | 2016-08-14 09:37 | PCM.DCSUM1 ---
Discharge Summary - Hospital Course Brief History: 80-year-old male with history of Parkinson's disease who presents with abdominal pain and distention and was admitted for management of a small bowel obstruction. - Discharge Data Discharge Date: 08/14/16 Discharge Disposition: Home, Self-Care 01 Condition: Good - Discharge Diagnosis/Problem(s) (1) Small bowel obstruction SNOMED Code(s): 520619659 ICD Code: K56.69 - OTHER INTESTINAL OBSTRUCTION Status: Acute (2) Parkinson's disease SNOMED Code(s): 58317521 ICD Code: G20 - PARKINSON'S DISEASE Status: Chronic Priority: High - Patient Summary/Data Consults: Consultations 08/10/16 22:20 OT Evaluation and Treatment [CONS] Routine Please Evaluate and Treat. OT Reason for Consult: Discharge Planning This query below is only for informational purposes and is not editable. 08/11/16 14:58 Consult to Physician [CONS] Urgent Consulting Provider: Murray Quach Call Completed to Consulting Physician: Yes Reason for Consult: Small bowel obstruction Hospital Course: Murray presented to the emergency room with abdominal pain, nausea and vomiting. Workup in the emergency room was suggestive of a small bowel obstruction with no clear transition point. An NG tube was placed who used to do to the hospital for IV fluid hydration, pain control and additional treatment. Over the next couple of days his NG tube drainage remained relatively minimal. He did start to pass gas and had a couple of small liquid bowel movements. His abdominal x-ray showed improvement in the distention of the small intestine each day. We were able to clamp and then removed the NG tube with no worsening of his symptoms. The morning after NG tube removal we advanced him to full liquids and she tolerated this well. He has been having bowel movements for the past couple of days. There is no obvious evidence for continued obstruction. Surgical consultation was obtained and their input was appreciated. A low residual diet was recommended following one week of a full liquid diet. He can followup with his symptoms return or do not continue to get better. He did not receive any medications at the time of discharge. - Patient Instructions Diet: Full Liquid Diet (for the next week ), GI Soft/Low Residue/Low Fiber ( start in one week and continue long-term) Activity: As Tolerated Showering/Bathing: May Shower Notify Provider of: Fever, Increased Pain, Nausea and/or Vomiting Other/Special Instructions: 1. You were in the hospital for management of a small bowel obstruction. This obstruction resolved with nonsurgical management. We recommend that to continue a full liquid diet for one week and then start a low residue diet to help avoid difficulties in the future. 2. Please seek medical attention if you develop worsening abdominal pain, abdominal distention, persistent nausea with vomiting or fever greater than 101. - Discharge Plan Home Medications: Home Meds Aspirin [Adult Low Dose Aspirin EC] 81 mg PO DAILY 09/26/13 [History] Metoprolol Tartrate [Lopressor] 25 mg PO DAILY 09/26/13 [History] Cyanocobalamin (Vitamin B-12) [Vitamin B12] 5,000 mcg PO DAILY 08/10/16 [History ] Carbidopa/Levodopa [Carbidopa-Levodopa 25-100] 1 tab PO TID 08/11/16 [History] Patient Handouts: Full Liquid Diet Referrals: Cooper Mei MD [Primary Care Provider] - (1-2 weeks - followup hospital stay for small bowel obstruction) - Discharge Summary/Plan Comment DC Time >30 min.: No (25) - Patient Data Vitals - Most Recent: Last Vital Signs Temp 36.1 C 08/14/16 08:03 Pulse 89 08/14/16 08:35 Resp 17 08/14/16 08:03 BP 111/76 08/14/16 08:35 Pulse Ox 97 08/14/16 08:03 Weight - Most Recent: 89.811 kg I&O - Last 24 hours: Intake & Output 08/13/16 08/14/16 08/14/16 22:59 06:59 14:59 Intake Total 840 500 Output Total 1000 950 Balance -160 -450 Med Orders - Current: Current Medications Acetaminophen (Tylenol) 650 mg PO Q4H PRN PRN Reason: Pain/Fever Al Hydroxide/Mg Hydroxide (Mag-Al Plus) 30 ml PO Q4H PRN PRN Reason: Indigestion Albuterol (Proventil Neb Soln) 2.5 mg NEB Q4H PRN PRN Reason: Shortness Of Breath/wheezing Carbidopa/Levodopa (Sinemet 25-100 Mg) 1 tab PO TID [facility] Last Admin: 08/14/16 08:35 Dose: 1 tab Erythromycin Ethylsuccinate (Eryped 400) 125 mg PO BID [facility] Last Admin: 08/14/16 08:35 Dose: 125 mg Metoprolol Tartrate (Lopressor) 25 mg PO DAILY [facility] Last Admin: 08/14/16 08:35 Dose: 25 mg Morphine Sulfate (Morphine) 2 mg IVPUSH Q2H PRN PRN Reason: Pain (severe 7-10) Ondansetron HCl (Zofran) 4 mg IV Q4H PRN PRN Reason: Nausea/Vomiting Oxymetazoline HCl (Afrin Original 0.05% Nasal [place]) 0 ml AVRIL Q12H PRN PRN Reason: nasal congestion Last Admin: 08/12/16 16:47 Dose: 1 spray Pantoprazole Sodium (Protonix) 40 mg PO BIDAC [facility] Last Admin: 08/14/16 07:07 Dose: 40 mg Senna/Docusate Sodium (Senna Plus) 1 tab PO BID [facility] Last Admin: 08/14/16 08:35 Dose: 1 tab Discontinued Medications Sodium Chloride (Normal Saline) 1,000 mls @ 150 mls/hr IV ASDIRECTED [facility] Last Admin: 08/11/16 06:54 Dose: 150 mls/hr Sodium Chloride (Normal Saline) 81 mls @ 3 mls/sec IV ONETIME ONE Stop: 08/10/16 18:30 Last Admin: 08/10/16 18:56 Dose: 3 mls/sec Sodium Chloride (Normal Saline) 1,000 mls @ 125 mls/hr IV ASDIRECTED [facility] Last Admin: 08/12/16 06:57 Dose: 125 mls/hr Sodium Chloride (Normal Saline) 1,000 mls @ 75 mls/hr IV ASDIRECTED [facility] Last Admin: 08/13/16 04:59 Dose: 75 mls/hr Dextrose/Lactated Ringer's (Dextrose 5%-Lactated Ringers) 1,000 mls @ 75 mls/ hr IV ASDIRECTED [facility] Iopamidol (Isovue-300 (61%)) 135 ml IV . DIRECTED [facility] Last Admin: 08/10/16 18:56 Dose: 150 ml Lorazepam (Ativan) 1 mg IV Q6H PRN PRN Reason: Nausea/Vomiting Lorazepam (Ativan) 0.5 mg IVPUSH Q2H PRN PRN Reason: Hiccups Ondansetron HCl (Zofran) 4 mg IVPUSH ONETIME ONE Stop: 08/10/16 17:26 Last Admin: 08/10/16 17:40 Dose: 4 mg Pantoprazole Sodium (Protonix Iv) 40 mg IV Q12H [facility] Last Admin: 08/13/16 09:45 Dose: 40 mg Sodium Biphosphate/Sodium Phosphate (Fleet Enema) 133 ml RECTAL ONETIME ONE Stop: 08/12/16 13:17 Last Admin: 08/12/16 13:20 Dose: 1 enema Sodium Chloride (Saline Flush) 10 ml FLUSH ONETIME PRN PRN Reason: PER RADIOLOGY PROTOCOL Last Admin: 08/10/16 18:56 Dose: 10 ml *Q Meaningful Use (DIS) - VTE *Q VTE Criteria *Q: - Stroke *Q Stroke Criteria *Q: - AMI *Q AMI Criteria *Q:
--- NOTE | 2016-08-14 10:14 | CONS ---
DATE OF SERVICE: 08/11/2016 REFERRING PHYSICIAN: CONSULTING PHYSICIAN: Murray Quach MD REASON FOR CONSULTATION: Abdominal pain. HISTORY OF PRESENT ILLNESS: This is an 80-year-old male, who I have previously seen in the emergency room and required a colonoscopy. The patient's family has requested admission due to his dizziness, weakness, and complete anorexia. The patient also had a CT scan, which is concerning for a malignancy. The patient has lost approximately 117 pounds and has bloody stools. PAST MEDICAL HISTORY: None. PAST SURGICAL HISTORY: None. SOCIAL HISTORY: The patient works in the [employer] and presents with his today. The patient is not a smoker. FAMILY HISTORY: No family history of colorectal cancer. He does have a daughter with what I believe is non-Hodgkin lymphoma. REVIEW OF SYSTEMS: GENERAL: The patient states he is too weak to move. HEENT: No symptoms. CARDIOVASCULAR: No history of myocardial infarction. RESPIRATORY: No shortness of breath. GASTROINTESTINAL: The patient states he has no past medical history, but he is on Flagyl. GENITOURINARY: Family reports a history of possible prostatitis. The remainder of review of systems is reviewed and is negative. PHYSICAL EXAMINATION: VITAL SIGNS: Blood pressure 144/78, pulse 73, respirations 18, and 96% on room air. HEENT: Pupils are equal. NECK: Supple. LUNGS: Clear. CARDIOVASCULAR: Regular rhythm and rate. ABDOMEN: Moderate distention. EXTREMITIES: Full range of motion. Strength 5/5. NEUROLOGIC: Oriented x3. PSYCH: No gross depression, but there is, what I feel is underlying, undiagnosed and untreated anxiety. LABORATORY RESULTS: Show a normal white blood cell count and hemoglobin 13.8. Basic metabolic panel is essentially normal. ASSESSMENT AND PLAN: The patient will be taken to the operating room for colonoscopy. Discussed risks, benefits, alternatives, and limitations including, but not limited to infection, bleeding, and perforation. The patient understands these risks and wishes to proceed. Murray Quach MD /[id number]
--- NOTE | 2016-08-14 11:02 | PN ---
DATE OF SERVICE: 08/13/2016 The patient has been afebrile with stable vital signs. He did move his bowels twice yesterday and his abdominal x-ray looks markedly improved. NG tube is out as well. The abdominal x-ray shows some small-bowel loops that are minimally dilated and quite a bit of air in the lower sigmoid colon and rectum. Given this, we will begin a full-liquid diet today and repeat some x-rays tomorrow. If he re-develops bowel obstructive pattern, we at that point would need to operate, but otherwise we will advance his diet to full-liquid. Long-term he should probably be on a low-residue diet assuming we get passed the next few days. Kevin Ayers MD /[id number]
--- NOTE | 2016-08-14 15:38 | PN ---
DATE OF SERVICE: 08/14/2016 The patient has continued to eat full liquids satisfactorily over the last 24 hours. Abdominal x-rays continued to improve with large amount of air in the transverse colon, minimal air in the small bowel and he has moved his bowels some additional times. At this point, he can be discharged home. Plan will be to continue with full-liquid diet for about a week and then low-residue diet and follow up with Surgery would be p.r.n. Kevin Ayers MD /[id number]
--- NOTE | 2016-08-15 09:20 | CR ---
Abdomen 2V AP Flat Upright INDICATION: Small bowel obstruction FINDINGS: The bowel gas pattern is unremarkable. There is no bowel distention. There are few scatter ed air-fluid levels. The findings have improved. No free air is seen. No pathologic calcifications a re demonstrated. Vascular stents are unchanged. IMPRESSION: 1. Resolving small bowel obstruction..
--- NOTE | 2016-08-15 09:21 | CR ---
Acute abdomen series The heart and vascular structures are within normal limits. There are no infiltrates or effusions. The bowel gas pattern is unremarkable. There is no bowel distention. There are no pathologic air-flu id levels. There is no free air. Impression: 1. Resolution of small bowel obstruction. 2. No acute findings of the chest.
== END 2016-08-14 10:00 | disposition home or self-care (01) | DRG 390 ==
LOC: JP.ED 16:33 → JP.2SS 21:02
PROVIDERS: ADMIT Hospitalist; ATTEND Surgery
DX: K56.69 Other intestinal obstruction (principal); I10 Essential (primary) hypertension; G20 Parkinson's disease; R10.9 Unspecified abdominal pain; R11.0 Nausea; R14.0 Abdominal distension (gaseous); R06.6 Hiccough; Z85.828 Personal history of other malignant neoplasm of skin; Z79.82 Long term (current) use of aspirin
CPT/HCPCS: 36415; 74177; 80053; 82150; 83690; 85025; 96361; 96374; 99285; J2405; J7030; J7040; J7050; 74000; 74000-26; 74020; 74020-26; 80048; 83605; 97165-GO; A9270-GY; C9113; J2060

== ENCOUNTER 2016-08-20 20:08 | Emergency (ER) | payer MEDICARE, BC ==
[2016-08-20 20:36] VITALS: BP 135/93
[2016-08-20] MEDS ORDERED: Acetaminophen 325 MG Tab PO ONE (21:27)
--- NOTE | 2016-08-20 21:33 | EDM.PDOC ---
ED HPI GENERAL MEDICAL PROBLEM - General Chief Complaint: Respiratory Problem Stated Complaint: ILLNESS Time Seen by Provider: 08/20/16 20:29 Source of Information: Reports: Patient, Family (spouse) History Limitations: Reports: No Limitations - History of Present Illness INITIAL COMMENTS - FREE TEXT/NARRATIVE: Pt seen in walk in clinic yesterday for chest xray. Diagnosed with bronchitis and started a Zpak. Has take 2 days of it. Today coughed up bloody sputum. Was hospitalized with NG tube last week for bowel obstruction. Discharged last Monday. Is still on a liquid diet. Has noted fever for 3 days. Is not treating the fever. Onset: Gradual Onset Date: 08/18/16 Severity: Mild Improves with: Reports: Medication Associated Symptoms: Reports: Fever/Chills, Loss of Appetite Right Chest Pain Score (Numeric/FACES): 5 - Related Data Allergies Allergy/AdvReac Type Severity Reaction Status Date / Time No Known Allergies Allergy Verified 08/20/16 20:56 Home Meds: Home Meds Aspirin [Adult Low Dose Aspirin EC] 81 mg PO DAILY 09/26/13 [History] Metoprolol Tartrate [Lopressor] 25 mg PO DAILY 09/26/13 [History] Cyanocobalamin (Vitamin B-12) [Vitamin B12] 5,000 mcg PO DAILY 08/10/16 [History ] Carbidopa/Levodopa [Carbidopa-Levodopa 25-100] 1 tab PO TID 08/11/16 [History] Azithromycin [Azithromycin] 250 mg PO DAILY 08/20/16 [History] Past Medical History Cardiovascular History: Reports: Afib, Hypertension Gastrointestinal History: Reports: Cholelithiasis, Diverticulosis Other Gastrointestinal History: hernia surgery X1, 2 hernias Neurological History: Reports: Parkinson's Oncologic (Cancer) History: Reports: Other (See Below) Other Oncologic History: skin cancer Dermatologic History: Reports: Other (See Below) Other Dermatologic History: skin cancer - Past Surgical History HEENT Surgical History: Reports: Tonsillectomy GI Surgical History: Reports: Cholecystectomy, Other (See Below) Other GI Surgeries/Procedures: AAA Dermatological Surgical History: Reports: Skin Biopsy Social & Family History - Family History Family Medical History: Noncontributory - Tobacco Use Smoking Status *Q: Former Smoker Used Tobacco, but Quit: Yes Month Tobacco Last Used: 1968 Second Hand Smoke Exposure: No - Caffeine Use Caffeine Use: Reports: Tea Caffeine Use Comment: rebecca - Alcohol Use Days Per Week of Alcohol Use: 0 - Recreational Drug Use Recreational Drug Use: No - Living Situation & Occupation Living situation: Reports: Occupation: Retired (lives [place] [employer] [place] [address], one son and daughter. 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 [place] ED ROS GENERAL - Review of Systems Review Of Systems: See Below Constitutional: Reports: Fever HEENT: Reports: No Symptoms, Eye Discharge (ongoing for 3 yrs to left eye) Respiratory: Reports: No Symptoms Cardiovascular: Reports: No Symptoms Musculoskeletal: Reports: Back Pain Skin: Reports: No Symptoms ED EXAM, GENERAL - Physical Exam Exam: See Below Exam Limited By: No Limitations General Appearance: Alert, WD/WN, No Apparent Distress Nose: Normal Inspection, Normal Mucosa, No Blood Throat/Mouth: Normal Inspection, Normal Lips, Normal Teeth, Normal Gums, Normal Oropharynx, Normal Voice, No Airway Compromise Head: Atraumatic, Normocephalic Neck: Normal Inspection, Supple, Non-Tender, Full Range of Motion Respiratory/Chest: No Respiratory Distress, Lungs Clear, Normal Breath Sounds, No Accessory Muscle Use, Chest Non-Tender Cardiovascular: Normal Peripheral Pulses, Regular Rate, Rhythm, No Edema, No Gallop, No JVD, No Murmur, No Rub Extremities: Normal Inspection Course - Vital Signs Last Recorded V/S: Last Vital Signs Temp 99.8 F 08/20/16 21:47 Pulse 96 08/20/16 20:50 Resp 14 08/20/16 20:50 BP 135/93 H 08/20/16 20:50 Pulse Ox 96 08/20/16 20:50 - Orders/Labs/Meds Labs: Laboratory Tests 08/20/16 Range/Units 21:37 WBC 10.4 (4.5-11.0) K/uL RBC 4.31 (4.30-5.90) M/uL Hgb 12.9 (12.0-15.0) g/dL Hct 38.8 L (40.0-54.0) % MCV 90 (80-98) fL MCH 30 (27-31) pg MCHC 33 (32-36) % Plt Count 170 (150-400) K/uL Neut % (Auto) 81 H (36-66) % Lymph % (Auto) 5 L (24-44) % [place] % (Auto) 12 H (2-6) % Eos % (Auto) 1 L (2-4) % Baso % (Auto) 0 (0-1) % Meds: Medications Discontinued Medications Generic Name Dose Route Start Last Admin Trade Name Jimbo PRN Reason Stop Dose Admin Acetaminophen 650 mg 08/20/16 21:27 08/20/16 21:47 Tylenol PO 08/20/16 21:28 650 mg NOW ONE Administration Ceftriaxone Sodium 1 gm 08/20/16 21:54 Rocephin IM 08/20/16 21:55 ONETIME ONE Departure - Departure Time of Disposition: 22:10 Disposition: Home, Self-Care 01 Condition: good Clinical Impression: Fever Qualifiers: Fever type: due to other condition Qualified Code(s): R50.81 - Fever presenting with conditions classified elsewhere - Discharge Information Instructions: Upper Respiratory Infection, Adult, [id number] Referrals: Cooper Mei MD [Primary Care Provider] - Forms: ED Department Discharge Additional Instructions: CBC drawn. WBC normal but does show bacterial shift. Rocephin 1gm IM given in ER. Tylenol 650mg po given in ER. Reassured that blood likely due to trauma to posterior pharynx from NG tube insertion and removal. Increase fluids. Rest. Pt with pending appt with primary care next week. 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 - Problem List & Annotations (1) Fever SNOMED Code(s): 788192610 Code(s): R50.9 - FEVER, UNSPECIFIED Status: Acute Priority: Medium Current Visit: Yes Qualifiers: Fever type: due to other condition Qualified Code(s): R50.81 - Fever presenting with conditions classified elsewhere
[2016-08-20] MEDS ORDERED: cefTRIAXone 1 GM Vial IM ONE (21:54)
== END 2016-08-20 22:51 | disposition home or self-care (01) ==
LOC: JP.ED 20:08
DX: R50.81 Fever presenting with conditions classified elsewhere (principal); I48.91 Unspecified atrial fibrillation; I10 Essential (primary) hypertension; G20 Parkinson's disease; Z85.828 Personal history of other malignant neoplasm of skin; Z90.49 Acquired absence of other specified parts of digestive tract; Z98.890 Other specified postprocedural states; Z79.82 Long term (current) use of aspirin; Z79.899 Other long term (current) drug therapy; Z87.891 Personal history of nicotine dependence
CPT/HCPCS: 36415; 85025; 96372; 99284; A9270; J0696; 99283

== ENCOUNTER 2017-07-03 06:59 | Inpatient (IN) | payer MEDICARE, BC ==
[2017-07-03] MEDS ORDERED: Lidocaine 1% with EPINEPHrine 1:100,000 50 ML MDV ONE (07:02)
[2017-07-03] MEDS ORDERED: Bupivacaine 0.5% 50 ML MDV ONE (07:02)
[2017-07-03] MEDS ORDERED: Acetaminophen 500 MG Tab PO ONE (08:00)
[2017-07-03] MEDS ORDERED: Metoprolol Tartrate 25 MG Tab PO ONE (08:20)
[2017-07-03] MEDS ORDERED: Carbidopa/Levodopa 25-100 MG Tab PO ONE (08:30)
[2017-07-03] MEDS: Dextrose 5%-Lactated Ringers 1,000 ML IV SCH ×2 (09:11→15:06)
[2017-07-03] MEDS ORDERED: Propofol 200 MG/20 ML SDV ONE (09:30)
[2017-07-03] MEDS ORDERED: Midazolam 1 MG/ML 2 ML SDV ONE (09:30)
[2017-07-03] MEDS ORDERED: fentaNYL 100 MCG/2 ML SDV ONE (09:30)
--- NOTE | 2017-07-03 10:11 | US ---
Retroperitoneal Ltd HISTORY: F/U AAA REPAIR FINDINGS: Distal abdominal aortic aneurysm with aortobiiliac stent graft is redemonstrated. Graft is patent. No endoleak is seen. Aneurysm is thrombosed around the graft. Diameter of the aneurysm measur es 6.9 cm. This does not appear to involve renal arteries or common iliac arteries. IMPRESSION: Stable distal abdominal aortic aneurysm with aortobiiliac stent graft.
[2017-07-03] MEDS ORDERED: ceFAZolin 2 GM in Premix Bag 1 BAG IV ONE (10:30)
[2017-07-03] MEDS ORDERED: Ketorolac 60 MG/2 ML SDV ONE (11:29)
[2017-07-03] MEDS ORDERED: HYDROmorphone 2 MG Tab PO PRN (12:58)
[2017-07-03] MEDS ORDERED: Ondansetron 4 MG/2 ML SDV IVPUSH PRN (12:59)
[2017-07-03] MEDS ORDERED: Tamsulosin 0.4 MG Cap.ER PO ONE (14:00)
[2017-07-03] MEDS: Carbidopa/Levodopa 25-100 MG Tab PO SCH ×2 (14:28→20:41)
[2017-07-03] MEDS: Acetaminophen 500 MG Tab PO SCH ×2 (14:29→20:38)
[2017-07-03] MEDS: ceFAZolin 1 GM in Premix Bag 1 BAG IV SCH (16:08)
[2017-07-03] MEDS: Bisacodyl 5 MG Tab PO SCH (20:39)
[2017-07-03] MEDS: Tamsulosin 0.4 MG Cap.ER PO SCH (20:40)
[2017-07-04] MEDS: Dextrose 5%-Lactated Ringers 1,000 ML IV SCH (01:11)
[2017-07-04] MEDS: ceFAZolin 1 GM in Premix Bag 1 BAG IV SCH ×2 (01:14→08:53)
[2017-07-04] MEDS: Acetaminophen 500 MG Tab PO SCH ×4 (02:18→20:50)
[2017-07-04] MEDS ORDERED: Polyethylene Glycol 3350 Powder 17 GM Packet PO ONE (07:41)
[2017-07-04] MEDS: Bisacodyl 5 MG Tab PO SCH ×2 (08:59→20:51)
[2017-07-04] MEDS: Aspirin 81 MG Tab.EC PO SCH (09:00)
[2017-07-04] MEDS: Carbidopa/Levodopa 25-100 MG Tab PO SCH ×3 (09:00→20:51)
[2017-07-04] MEDS ORDERED: Polyethylene Glycol 3350 Powder 119 GM Bottle PO ONE (09:00)
[2017-07-04] MEDS: Metoprolol Tartrate 25 MG Tab PO SCH (09:01)
--- NOTE | 2017-07-04 10:14 | PN ---
DATE OF SERVICE: 07/04/2017 SUBJECTIVE: Murray is postop day one. Pain is controlled. He has been up ambulating. Vital signs stable. REVIEW OF SYSTEMS: Remainder of review of systems negative for any pertinent positives and negatives. OBJECTIVE: GENERAL: Murray Bell is an 81-year-old male. He is sitting up in the chair, alert, orientated. VITAL SIGNS: TPR 96.4, 69, 16, blood pressure 122/70. HEENT: Negative. NECK: Supple. HEART: Regular rate and rhythm. LUNGS: Clear. ABDOMEN: Incision looks good. Scrotal support is on. EXTREMITIES: Without peripheral edema. ASSESSMENT: 1. Open repair of recurrent inguinal left hernia with mesh. Date of surgery 07/03/2017, Kevin Ayers M.D. 2. History of aortic aneurysm graft, ultrasound negative. 3. Chronic constipation. PLAN: 1. MiraLax 119 g in 32 ounces of Gatorade. 2. Saline lock IV. 3. DC tele. 4. Good pulmonary toilet. 5. We will evaluate p.r.n. or in a.m. Nelli Massey PA-C /[id number]
[2017-07-04] MEDS ORDERED: Dimethicone 20%/Zinc Oxide 25% 56 GM Spray Bottle TOP PRN (10:59)
[2017-07-04] MEDS: Tamsulosin 0.4 MG Cap.ER PO SCH (20:50)
[2017-07-05] MEDS: Acetaminophen 500 MG Tab PO SCH ×2 (01:43→08:10)
[2017-07-05 07:14] VITALS: BP 117/62
[2017-07-05] MEDS: Bisacodyl 5 MG Tab PO SCH (08:10)
[2017-07-05] MEDS: Aspirin 81 MG Tab.EC PO SCH (08:11)
[2017-07-05] MEDS: Metoprolol Tartrate 25 MG Tab PO SCH (08:12)
[2017-07-05] MEDS: Carbidopa/Levodopa 25-100 MG Tab PO SCH (08:13)
--- NOTE | 2017-07-05 10:14 | DISCH ---
ADMISSION DIAGNOSES: Inguinal hernia, history of abdominal aortic aneurysm with graft, actinic keratosis, atrial fibrillation, basal cell carcinoma, hypertension, glaucoma, Parkinson disease, restless legs, thrombocytopenia. DISCHARGE DIAGNOSIS: Recurrent incarcerated left inguinal hernia and left inguinal nerve release of entrapment from previous scar. Date of surgery 07/03/2017. HISTORY: Murray Bell had the above condition. After preoperative evaluation and discussion of possible risks and possible complications, he wished to proceed with surgical procedure. HOSPITAL COURSE: Murray had his surgery on 07/03/2017. He had no operative complications. On postop day #1, he was started on a regular diet, oral pain medication, and was given bowel stimulation. On postop day #2, he was ready to be discharged to home. PHYSICAL EXAMINATION: GENERAL: Murray Bell is a pleasant 81-year-old male. VITAL SIGNS: Height is 5 feet 7 inches, weight is 169 pounds. TPR is 96.2, 78, 16; blood pressure 117/62. HEENT: Negative. NECK: Supple. HEART: Regular rate and rhythm. LUNGS: Clear. ABDOMEN: Incision looks good, athletic supporter on. EXTREMITIES: Without peripheral edema. DISPOSITION: Discharged to home. CONDITION: Stable and improving. FOLLOWUP: Followup appointment with Kevin Ayers MD, at [facility] on 07/12/2017 at 11:00 a.m. DISCHARGE MEDICATIONS: New prescriptions: Dilaudid 2 mg one q.4 hours p.r.n. pain #30. He is to resume his home medications. DIET: Usual diet as tolerated, drink 8 to 10 glasses of water a day. ACTIVITY: As tolerated. No lifting greater than 10 pounds for 6 weeks. Shower-bathing, may shower. Notify provider of fever, increased pain, swelling, redness or drainage. Wound incision care, keep site clean and dry, wear athletic supporter, until next appointment, use incentive spirometer 10 times every hour while awake.
--- NOTE | 2017-07-11 15:24 | OR ---
DATE OF PROCEDURE: 07/03/2017 PREOPERATIVE DIAGNOSIS: Recurrent incarcerated left inguinal hernia. POSTOPERATIVE DIAGNOSES: 1. Recurrent incarcerated left inguinal hernia. 2. Left ilioinguinal nerve at risk for scar entrapment. OPERATIVE PROCEDURES: 1. Repair of recurrent incarcerated left inguinal hernia with mesh ([id number]). 2. Division of left ilioinguinal nerve ([id number]). ANESTHESIA: Local plus IV sedation. ASSISTANTS: 1. Nelli Massey PA-C. 2. FRANK Hall. 3. FRANK Lopez. INDICATION FOR PROCEDURE: This is an 81-year-old with moderately advanced Parkinson disease, presenting with a left inguinal hernia. On examination, last week in the clinic, the patient was noted to have a hernia that was fairly difficult to reduce and in fact not entirely reducible. We were able to reduce what would likely be the sigmoid colon (very narrow-necked hernia) and certainly would be at risk for incarceration and ischemic changes to the sigmoid colon, which would necessitate a much larger procedure. Given this, the plan will be to proceed with a left inguinal hernia repair. This had been repaired many years ago previously without mesh. The potential risks of the procedure were reviewed with the patient and his including bleeding, infection, recurrence of the hernia once again, problems with chronic pain following the procedure, as well as the remote possibility of cardiopulmonary, septic, or hemorrhagic complications leading to were discussed, and the patient wishes to proceed. DETAILS OF PROCEDURE: The patient was taken to the operating room and placed in a supine position. After IV sedation was administered, the abdomen and groin areas were prepped and draped. The left inguinal area was then anesthetized with 1% lidocaine mixed with Marcaine and the previous left inguinal incision was then reused and carried down through the skin and subcutaneous tissue. On the medial aspect of the incision, the patient had an obvious hernia sac present with essentially complete separation of the external oblique aponeurosis. Lateral to that, the external oblique aponeurosis was divided. At that point, the hernia and cord structures were pulled upward. The patient appeared to have an incarcerated area of appendix epiploica off the sigmoid colon, which was adhesed to the hernia sac. The bladder was divided, and this allowed full reduction of the sigmoid colon at this point. The hernia sac which at that point had been dissected off the cord structures and opened up was then closed with a pursestring stitch of 3-0 Vicryl stitch and then turned internally. The patient had a fairly wide defect and an extra large mesh plug was placed to Sylvester ligament. This mesh was affixed with titanium tacking screws and then to the underside of the conjoined tendon medially, superiorly, and laterally with horizontal mattress sutures of 0 Vicryl stitch. At that point, a primary closure of the defect between the conjoined tendon and the shelving portion of the inguinal ligament was accomplished with running 0 Vicryl stitch. The oblique aponeurosis through much of its course was essentially fused with the underlying conjoined tendon. Given this, the cord structures were externalized into the subcutaneous tissue plane. The flat portion of mesh-plug system would be quite superficial and unlikely to be contributing much to the repair at this point. The ilioinguinal nerve prior to closure of the conjoint tendon and attached external oblique aponeurosis was felt to be at risk for entrapment by scar, and this was then divided and sent as a separate specimen. At this point, the subcutaneous tissue was approximated with a 3-0 Vicryl stitch and the skin with 4-0 Vicryl subcuticular stitch. Dressing was applied. The patient was taken to the recovery room in a satisfactory condition. Physician sales office assistant, Nelli Massey, played an essential role in assisting in this case, helping to position the patient, retract structures as needed, as well as suturing and cutting sutures when indicated. Her presence improved patient's safety and decreased the operative time. Kevin Ayers MD /[id number]
== END 2017-07-05 10:32 | disposition home or self-care (01) | DRG 352 ==
LOC: JP.SDS 06:59 → JP.MS 06:59 → EDSTATUS 11:15 → JP.2SS 12:25
PROVIDERS: ADMIT Surgery; ATTEND Surgery
PROC: 0YU60JZ Supplement Left Inguinal Region with Synthetic Substitute, Open Approach (ICD-10-PCS; principal; 2017-07-03)
PROC: 01NB0ZZ Release Lumbar Nerve, Open Approach (ICD-10-PCS; 2017-07-03)
DX: K40.31 Unilateral inguinal hernia, with obstruction, without gangrene, recurrent (principal); Z86.79 Personal history of other diseases of the circulatory system; G57.82 Other specified mononeuropathies of left lower limb; K59.09 Other constipation; I10 Essential (primary) hypertension; G20 Parkinson's disease; H40.9 Unspecified glaucoma; Z85.828 Personal history of other malignant neoplasm of skin; Z79.82 Long term (current) use of aspirin; G25.81 Restless legs syndrome; D69.6 Thrombocytopenia, unspecified
CPT/HCPCS: 76775; 76775-26; 88302; 94762; 97162-GP; 97530-GP; A9270-GY; C1781; J0690; J1885; J2250; J2405; J2704; J3010; J7042

== ENCOUNTER 2021-08-18 18:04 | Emergency (ER) | payer OTHER, MEDICARE, BC ==
[2021-08-18] MEDS ORDERED: Sodium Chloride 0.9% 1,000 ML IV SCH (18:15)
[2021-08-18] MEDS ORDERED: Sodium Chloride 0.9% 10 ML Syringe FLUSH PRN (18:15)
[2021-08-18 18:51] LABS: ESTIMATED GFR 44 (>60)
[2021-08-18 19:14] LABS: CORONAVIRUS COVID-19 NAA NEGATIVE (NEGATIVE)
[2021-08-18] MEDS ORDERED: Ondansetron 4 MG/2 ML SDV IVPUSH ONE (19:15)
[2021-08-18 22:48] VITALS: PULSE 96
[2021-08-18 23:48] VITALS: BP 124/81
[2021-08-19] MEDS ORDERED: Ondansetron 4 MG/2 ML SDV IVPUSH ONE (00:45)
[2021-08-19] MEDS ORDERED: Lidocaine 2% Jelly 10 ML Urojet MUCMEM ONE (01:01)
== END 2021-08-19 01:44 ==
LOC: JP.ED 18:04
DX: I71.3 Abdominal aortic aneurysm, ruptured (principal); K56.699 Other intestinal obstruction unspecified as to partial versus complete obstruction; Z79.899 Other long term (current) drug therapy; Z79.82 Long term (current) use of aspirin; Z90.49 Acquired absence of other specified parts of digestive tract; Z87.891 Personal history of nicotine dependence; Z20.822 Contact with and (suspected) exposure to COVID-19
CPT/HCPCS: 0241U; 36415; 74018; 74176; 80053; 81001; 85025; 86140; 96361; 96374; 96376; 99285; J2405; J3490; J7030